=== PATIENT | male | born 1970 | race Caucasian/White ===

== ENCOUNTER 2017-01-22 10:00 | Emergency (ER) | payer SELFPAY ==
[2017-01-22 10:06] VITALS: BP 135/85; PULSE 86; TEMP 98; BMI 33.6
[2017-01-22] MEDS ORDERED: ONDANSETRON 4 MG/2 ML VIAL IVPB ONE (10:17)
[2017-01-22] MEDS ORDERED: MECLIZINE HCL 25 MG TABLET (FP) PO ONE (10:17)
[2017-01-22] MEDS ORDERED: SODIUM CHLORIDE 1,000 ML IV ONE (10:17)
--- NOTE | 2017-01-22 10:17 | PDOC ---
History of Present Illness - General Chief Complaint: Nausea/Vomiting Stated Complaint: VOMITING, DIZZY Time Seen by Provider: 01/22/17 10:04 History Source: Patient Exam Limitations: No Limitations - History of Present Illness Initial Comments: 01/22/17 10:18 46y M no known pmhx presents with complaint of dizziness. Pt states starting last night, he started having room spinning dizziness that was relatively constant and is worse with ambulation/movement. Pt states he has had multiple episodes of nbnb vomiting. The dizziness seems worse with turning to the left. pt denies any headache, neck pain, fever/chills, chest pain, palpitations, abd pain, diarrhea, mnelena, bpr, dysuria, frequency, vision changes, dsyarthria, focal numbness/tingling/weakness. no recent trauma. pt does endorse mildly deminished hearing/stuffiness in the left ear since last night. no recent illnesses/uri denies etoh abuse, smoking Past History - Past Medical History Allergies/Adverse Reactions: Allergies Allergy/AdvReac Type Severity Reaction Status Date / Time No Known Allergies Allergy Verified 01/22/17 10:02 Home Medications: Ambulatory Orders Meclizine HCl [Antivert -] 25 mg PO TID PRN #20 tablet 01/22/17 Ondansetron [Zofran -] 4 mg PO TID PRN #21 tablet 01/22/17 Other medical history: DENIES - Psycho/Social/Smoking Cessation Hx Anxiety: No Suicidal Ideation: No Smoking History: Never smoked Information on smoking cessation initiated: No Hx Alcohol Use: No Drug/Substance Use Hx: No Review of Systems - Review of Systems Able to Perform ROS?: Yes Comments:: 01/22/17 10:37 Constitutional - no reported Fever, Chills, HEENT: no reported vision changes, sore throat Respiratory: no reported cough, sob, hemoptysis Cardiac: no reported chest pain, palpitations, light headedness, leg swelling Abd/GI: no reported abd pain, nausea, vomiting, blood per rectum, melena, diarrhea : no reported dysuria, frequency, discharge Musculskelatal - no reported back pain, joint swelling skin - no reported bruising, erythema, rash neurological: +vertigo no reported headache, numbness, focal weakness, tingling , ataxia, hematologic: no reported anemia, easy bruising, easy bleeding *Physical Exam - Vital Signs Last Vital Signs Temp Pulse Resp BP Pulse Ox 98 F 86 18 135/85 100 01/22/17 10:00 01/22/17 10:00 01/22/17 10:00 01/22/17 10:00 01/22/17 10:00 - Physical Exam Comments: 01/22/17 10:38 GENERAL: The patient is awake, alert, and fully oriented, Nontoxic - in no acute distress. HEAD: Normocephalic, atraumatic. EYES: extraocular movements intact, sclera anicteric, conjunctiva clear, + horizontal nystagmus when looking to the left ENT: Normal voice, Moist mucous membranes. NECK: Normal range of motion, supple LUNGS: Breath sounds equal, clear to auscultation bilaterally. No wheezes, no rhonchi, no rales. HEART: Regular rate and rhythm, normal S1 and S2 without murmur, rub or gallop. ABDOMEN: Soft, nontender, normoactive bowel sounds. No guarding, no rebound. . No CVA tenderness EXTREMITIES: Normal range of motion, no edema. No clubbing or cyanosis. No cords, erythema, or tenderness. NEUROLOGICAL: No facial assymetry, Normal speech, PSYCH: Normal mood, normal affect. SKIN: Warm, Dry, normal turgor, NEURO: Mental status: The patient is oriented x3. Cranial nerves: Cranial nerves II through XII are intact Motor: The upper extremities are 5 over 5 in all muscle groups. The lower extremities are 5 over 5 in all muscle groups. Negative pronator drift Sensation: Sensation is intact to light touch throughout. romberg negative Cerebellar: [id number] is normal in both upper extremities. rapid alternating movements are normal. Gait: Normal. Heel and toe walking are normal. Tandem gait is normal. Heart Score/ECG Review - ECG Impressions Comment:: 01/22/17 10:39 Twelve-lead EKG was performed and reviewed by me. There is normal sinus rhythm with a rate of 58 The axis is normal. The intervals are normal. There is normal R wave progression nonspecific twi in lead III, likely normal vairant 01/22/17 10:48 ED Treatment Course - LABORATORY CBC & Chemistry Diagram: 01/22/17 10:25 01/22/17 10:25 Medical Decision Making - Medical Decision Making 01/22/17 10:40 normal gait and neuro exam beside nystagmus NO signs of diplopia, dysarthria, dysphagia, dysmetria, sensory lose/weakness suspect peripheral veritgo but due to persistence, will obtain ct head will give meclizine, zofran, fluids will ck labs to r/o anemia, metabolic dernagement ekg ot scren for arrythmias 01/22/17 12:19 pts labs reviewed pt feeling improved still feels slightly dizzy when looking side to side delfino hallpike mildly poisitive to left 01/22/17 13:47 pt feeling improved, able to ambulate unassisted ct neg will dc with pmd and ENT fu return precautions were discussed I discussed the physical exam findings, ancillary test results and final diagnoses with the patient. I answered all of the patient's questions. The patient was satisfied with the care received and felt comfortable with the discharge plan and treatment plan. The patient will call their primary care physician within 24 hours to arrange follow-up and will return to the Emergency Department with any new, persistent or worsening symptoms. *DC/Admit/Observation/Transfer Diagnosis at time of Disposition: Vertigo, peripheral Qualifiers: Laterality: right Qualified Code(s): H81.391 - Other peripheral vertigo, right ear - Discharge Dispostion Disposition: HOME Condition at time of disposition: Stable Admit: No - Prescriptions Prescriptions: Meclizine HCl [Antivert -] 25 mg PO TID PRN #20 tablet PRN Reason: Vertigo Ondansetron [Zofran -] 4 mg PO TID PRN #21 tablet PRN Reason: Nausea - Patient Instructions Printed Discharge Instructions: DI for Vertigo Additional Instructions: Return to the emergency department immediately with ANY new, persistent or worsening symptoms. Take meclizine for your dizziness and zofran for your nausea. If your symtoms do not improve after a few days, please follow up with your primary care doctor or an ENT doctor. You MUST call and follow up with your doctor in 2-3 days for further evaluation of your symptoms. Results were discussed with you. Please make sure your doctor reviews the results of your emergency evaluation.
[2017-01-22 10:38] LABS: BASOPHIL 0.7 % (0-2.0); MCH 29.7 pg (25.7-33.7); MCHC 34.2 g/dl (32.0-35.9); MEAN CELL VOLUME 86.8 fl (80-96); MEAN PLT VOLUME 9.7 fl (7.5-11.1); NEUTROPHILS 84.3 % (42.8-82.8); PLATELET COUNT 221 K/MM3 (134-434); RDW 13.3 % (11.9-15.9); WHITE BLOOD COUNT 10.2 K/mm3 (4.0-10.8)
[2017-01-22 10:58] LABS: ALBUMIN 4.5 g/dl (3.5-5.0); ALK PHOS 81 U/L (32-92); ANION GAP 9 (8-16); BILIRUBIN,TOTAL 0.8 mg/dl (0.2-1.0); CO2 24 mmol/L (22-28); CREATININE 0.9 mg/dl (0.6-1.3); GLUCOSE,RANDOM 171 mg/dl (74-106); SGOT/AST 22 U/L (10-42); SGPT/ALT 25 U/L (10-40); TOT PROT 7.2 g/dl (6.4-8.3)
[2017-01-22 11:02] LABS: PH,URINE 8.5 (4.5-8); URINE APPEARANCE Clear; URINE BILIRUBIN Negative (NEGATIVE); URINE BLOOD Negative (NEGATIVE); URINE COLOR YELLOW; URINE GLUCOSE (UA) Negative (NEGATIVE); URINE KETONE Negative (NEGATIVE); URINE LEUK ESTERASE Negative (NEGATIVE); URINE NITRITE Negative (NEGATIVE); URINE PROTEIN 2+ (NEGATIVE); URINE UROBILINOGEN 0.2 E.U/dl (0.2-1.0)
[2017-01-22 11:03] LABS: URINE BACTERIA FEW /hpf (NEGATIVE); URINE RBC 0-3 /hpf (0-3); URINE WBC 0-3 (3-5)
--- NOTE | 2017-01-23 11:42 | EKG ---
Test Reason : Blood Pressure : / mmHG Vent. Rate : 058 BPM Atrial Rate : 058 BPM P-R Int : 154 ms QRS Dur : 088 ms QT Int : 428 ms P-R-T Axes : 028 010 010 degrees QTc Int : 420 ms SINUS BRADYCARDIA OTHERWISE NORMAL ECG NO PREVIOUS ECGS AVAILABLE Confirmed by JAMAR KLEIN MD ([id number]) on 01/23/2017 11:42:06 AM Referred By: MANJULA Confirmed By:JAMAR KLEIN MD
== END 2017-01-22 14:15 | disposition home or self-care (01) ==
LOC: FER 10:00
PROC: 3E033GC Introduction of Other Therapeutic Substance into Peripheral Vein, Percutaneous Approach (ICD-10-PCS; principal; 2017-01-22)
PROC: 3E0337Z Introduction of Electrolytic and Water Balance Substance into Peripheral Vein, Percutaneous Approach (ICD-10-PCS; 2017-01-22)
DX: H81.391 Other peripheral vertigo, right ear (principal)
CPT/HCPCS: 36415; 70450-TC; 80053; 81003; 81015; 85025; 93005; 99285-25